=== PATIENT | male | born 1940 | race Caucasian/White ===

== ENCOUNTER 2019-05-04 17:28 | Observation (INO) | payer MEDICARE, OTHER ==
[2019-05-04 19:37] LABS: #Basophils 0.1 thou/uL (0.0-0.2); #Eosinphils 0.1 thou/uL (0.0-0.7); #Lymphocytes 3.1 thou/uL (1.20-3.40); #Monocytes 0.9 thou/uL (0.11-0.59); #Neutrophils 8.3 thou/uL (1.40-6.50); %Basophils 0.4 % (0.0-1.0); %Monocytes 7.5 % (0.0-10.0); Hemoglobin 11.4 g/dL (14.0-18.0); Mean Corpuscular HGB CONC 33.9 g/dL (32.0-36.0); Mean Corpuscular Hemoglobin 29.8 pg (27.0-31.0); Mean Corpuscular Volume 87.9 fL (78.0-98.0); Mean Platelet Volume 7.9 fL (7.4-10.4); Platelet Count 370 thou/uL (130-400); RBC Distribution Width 13.3 % (11.5-14.5); Red Blood Cell (RBC) Count 3.82 mill/uL (4.70-6.10); White Blood Cell (WBC) Count 12.5 thou/uL (4.8-10.8)
--- NOTE | 2019-05-04 19:51 | CT ---
EXAM: CT cervical spine PROVIDED CLINICAL HISTORY: Pain from level of the shoulders to mid back after a fall 7 hours ago. TECHNIQUE: Contiguous axial CT images are obtained through the cervical spine from the skull base to the T1 leve l. Sagittal and coronal reformatted images are provided. COMPARISON: 08/19/2006. FINDINGS: There is rotation of C1 on C2. However, the patient's head is tilted to the left and rotated. This is likely related to positioning and not thought to be related to rotary subluxation. Postsurgical changes related to anterior cervical fusion C6-T1 vertebral bodies with interbody fusion material is again seen. No hardware complication is seen. Multilevel degenerative changes are seen throughout the cervical spine with narrowing of the intervertebral disc spaces in the visualized cerv ical spine with multilevel facet hypertrophic changes. There is posterior osteophyte 1. No evidence for fracture traumatic subluxation. Formation with disc osteophyte complexes at multip le levels superior to the level of fusion. Moderate left-sided neural foraminal narrowing is seen at C2-3 level with severe bilateral neural foraminal narrowing at C3-4, and moderate to severe bilate ral neural foraminal narrowing at the C5-C6 level. Posterior osteophyte formation at the C6-7 level also results in moderate to severe bilateral neural foraminal narrowing due to bony encroachment. No prevertebral soft tissue swelling apparent. Incompletely imaged, the most superior aspect of each lung apex is clear. Subcentimeter too small to characterize hypodense nodule is seen in the left lobe of thyroid gland. Vascular calcifications are seen in the carotid arteries. IMPRESSION: 1. No evidence of a fracture or traumatic subluxation. 2. Postoperative and degenerative changes of the cervical spine as described above. 3. Subcentimeter too small to characterize hypodense nodule left lobe of the thyroid gland.
[2019-05-04 20:01] LABS: ALT (SGPT) 8 U/L (8-55); AST (SGOT) 13 U/L (5-34); Albumin 3.7 g/dL (3.4-4.8); Alkaline Phosphatase 123 U/L (40-150); Anion Gap 17 mmol/L (10-20); BUN (Urea Nitrogen) 38 mg/dL (8.4-25.7); Bilirubin, Total 0.2 mg/dL (0.2-1.2); Calc. Creatinine Clearance 0 mL/min (70-130); Calcium 9.1 mg/dL (7.8-10.44); Carbon Dioxide 23 mmol/L (23-31); Chloride 103 mmol/L (98-107); Estimated GFR-MDRD 28; Globulin 3.4 g/dL (2.4-3.5); Glucose 118 mg/dL (83-110); Potassium 4.2 mmol/L (3.5-5.1); Protein, Total 7.1 g/dL (5.8-8.1); Sodium 139 mmol/L (136-145)
--- NOTE | 2019-05-04 20:04 | CT ---
EXAM: CT Thoracic Spine WO Con PROVIDED CLINICAL HISTORY: Back pain from the level of the shoulders to the mid back after a fall 7 hours ago. COMPARISON: 08/19/2006. FINDINGS: Multilevel degenerative changes are seen throughout the thoracic spine with multiple bridging osteoph ytes. Postsurgical changes lower cervical spine are visualized and described on CT cervical spine also obtained on this date. The vertebral body heights do appear to be within normal limits, and no f racture or subluxation is appreciated. There is no significant bony encroachment on the central spinal canal with scattered mild degrees of neural foraminal narrowing present. The paravertebral soft tissues have a normal appearance. There is an area of sclerosis seen within the T12 vertebral body which is a stable finding compared t o CT examination in 2017 and probably related to mild endplate degenerative changes. There is vacuum phenomenon seen in the T12-L1 intervertebral disc space. Vascular calcifications are seen in the thoracic aorta. A noncalcified 6 mm pulmonary nodule is seen in the right lower lobe with volume loss seen at each whitney ng base. There are calcified vessels seen posterior pleural fat just to the lower thoracic spine. IMPRESSION: 1. Noncalcified 6 pulmonary nodule right lower lobe. Follow-up CT thorax in 6 months is recommended. 2. Degenerative changes involving the thoracic spine, but no fracture or subluxation is seen.
[2019-05-04] MEDS ORDERED: Fentanyl 100 MCG/2 ML VIAL ONE (20:07)
[2019-05-04] MEDS ORDERED: Ondansetron PF 4 MG/2 ML Vial ONE (20:07)
--- NOTE | 2019-05-04 20:19 | CT ---
CT LUMBAR SPINE WITHOUT CONTRAST: HISTORY: Fall 7 hours ago. Pain. COMPARISON: 05/21/2017 FINDINGS: There are five lumbar type vertebrae. Lumbar spine vertebral body height is maintained. No fracture . There is vacuum disk phenomenon at T12-L1, L2-L3, L3-L4, L4-L5, and L5-S1. There is 3.2 mm of retrolisthesis of L3 upon L4 and 6.2 mm of anterolisthesis of L4 upon L5. There a re decompressive laminectomy defects at L3-L4 and L4-L5. There is nonspecific sclerosis along the right aspect of T12, which is presumed to be due to a chroni c process. The degree of sclerosis appears to have progressed when compared to the previous examinat ion and may be due to type III modic change. No paraspinal mass, lymphadenopathy, or hematoma. A nonaneurysmal atherosclerotic aorta is noted. Nonspecific calcification in the right renal pelvis. Limited evaluation of the contents of the central spinal canal and neural foramina due to technique. T11-T12: No significant central canal stenosis. The foramina are patent. T12-L1: Vacuum disk phenomenon. Moderate central canal stenosis secondary to broad-based disk bulge . Moderate bilateral foraminal narrowing. L1-L2: Broad-based disk bulge, ligamentum flavum thickening, and facet hypertrophy result in moderat e to severe central canal stenosis. Moderate to severe bilateral foraminal narrowing. L2-L3: Broad-based disk bulge, ligamentum flavum thickening, and facet hypertrophy result in moderat e central canal stenosis. Moderate right and left foraminal narrowing. L3-L4: Posterior laminectomy defect. Broad-based disk bulge with at least mild central canal stenos is. Moderate to severe bilateral foraminal narrowing. L4-L5: Posterior laminectomy defect. Broad-based disk bulge with at least mild to moderate central canal stenosis. Moderate right and left foraminal narrowing. L5-S1: Central disk protrusion abuts the thecal sac. Disk material encroaches upon the left and rig ht subarticular zone with presumed mass effect upon the bilateral traversing S1 nerve roots. IMPRESSION: 1. No fracture. 2. Extensive degenerative change of the lumbar spine, as detailed above. POS: PPP
[2019-05-04] MEDS ORDERED: HYDROcodone/Acetaminophen 7.5/325 mg Tablet ONE (20:43)
[2019-05-04] MEDS: Sodium Chloride 0.9% 1,000 ML IV SCH (22:46)
[2019-05-05] MEDS ORDERED: Acetaminophen 325 MG TAB PO PRN (01:54)
[2019-05-05] MEDS ORDERED: Acetaminophen 650 MG Suppository PR PRN (01:54)
[2019-05-05] MEDS ORDERED: Ondansetron PF 4 MG/2 ML Vial IVP PRN (01:54)
[2019-05-05] MEDS ORDERED: Ondansetron ODT 4 MG TAB PO PRN (01:54)
[2019-05-05] MEDS ORDERED: PROVENTIL INHALER 6.7 G (200 INHALATIONS) INH PRN (01:57)
[2019-05-05] MEDS ORDERED: HYDROcodone/Acetaminophen 7.5/325 mg Tablet PO SCH (03:00)
[2019-05-05] MEDS ORDERED: Dextrose 50% Abboject 50 ML SYRINGE SLOW IVP PRN (04:29)
[2019-05-05] MEDS ORDERED: HumaLOG 300 UNITS/3 ML VIAL SC PRN (04:29)
[2019-05-05] MEDS ORDERED: Dextrose 5% in Water 1,000 ML IV PRN (04:29)
[2019-05-05 05:29] LABS: #Basophils 0.1 thou/uL (0.0-0.2); #Eosinphils 0.3 thou/uL (0.0-0.7); #Monocytes 1.1 thou/uL (0.11-0.59); #Neutrophils 6.1 thou/uL (1.40-6.50); %Basophils 0.5 % (0.0-1.0); %Eosinophils 2.5 % (0.0-10.0); %Lymphocytes 34.9 % (21.0-51.0); %Monocytes 9.4 % (0.0-10.0); %Neutrophils 52.7 % (42.0-75.0); Hemoglobin 10.6 g/dL (14.0-18.0); Mean Corpuscular HGB CONC 32.1 g/dL (32.0-36.0); Mean Corpuscular Hemoglobin 29.2 pg (27.0-31.0); Mean Platelet Volume 7.9 fL (7.4-10.4); Platelet Count 359 thou/uL (130-400); RBC Distribution Width 13.3 % (11.5-14.5); Red Blood Cell (RBC) Count 3.64 mill/uL (4.70-6.10); White Blood Cell (WBC) Count 11.5 thou/uL (4.8-10.8)
[2019-05-05 05:46] LABS: Anion Gap 14 mmol/L (10-20); BUN (Urea Nitrogen) 31 mg/dL (8.4-25.7); Calc. Creatinine Clearance 54 mL/min (70-130); Calcium 8.6 mg/dL (7.8-10.44); Carbon Dioxide 20 mmol/L (23-31); Chloride 107 mmol/L (98-107); Estimated GFR-MDRD 35; Glucose 80 mg/dL (83-110); Potassium 4.2 mmol/L (3.5-5.1); Sodium 137 mmol/L (136-145)
[2019-05-05 07:29] LABS: Bacteria/HPF None Seen HPF (None Seen); Bilirubin Negative (Negative); Blood, Urine Negative (Negative); Clarity Clear (Clear); Glucose, Urine (Dipstick) Normal (Negative); Leukocyte Negative Leu/uL (Negative); Nitrite Negative (Negative); Protein, Urine (Dipstick) Negative (Neg-Trace); RBC/HPF 0-3 HPF (0-3); Squamous Epithelial 0-3 HPF (0-3); Urobilinogen Normal mg/dL (Less than 2); WBC/HPF 0-3 HPF (0-3)
[2019-05-05 07:31] LABS: Urine Culture Reflex No No
--- NOTE | 2019-05-05 08:16 | HP ---
PRIMARY CARE PHYSICIAN: Dr. Luis Duffy. CODE STATUS: Full code. TIME OF EVALUATION: 2:00 a.m. CHIEF COMPLAINT: Fall. HISTORY OF PRESENT ILLNESS: A 78-year-old male patient with past medical history of hypertension, diabetes, came to the hospital after having a fall 7 hours ago, who reported he lost his balance, unclear if he lost his consciousness or not. The symptoms started when he was in [employer] with no clear triggers, no alleviating factors. The symptoms were severe. REVIEW OF SYSTEMS: All systems were reviewed and negative except for the findings mentioned above. PAST MEDICAL HISTORY: Positive for hypertension and diabetes. SURGICAL HISTORY: Low back surgery, neck surgery, bilateral knee replacement, hemorrhoid surgery, sinus surgery, tonsillectomy. PSYCHIATRIC HISTORY: Anxiety and depression. SOCIAL HISTORY: No alcohol. No drugs. The patient is a former tobacco user. He smoked cigarettes. The patient quit smoking more than 10 years ago. KNOWN ALLERGIES: Ibuprofen and morphine. REPORTED MEDICATIONS: 1. Aspirin 81. 2. Diltiazem. 3. Lisinopril. 4. Sertraline. 5. Trazodone. 6. Cyproheptadine. 7. Atorvastatin. 8. Furosemide. 9. Gabapentin. 10. Bupropion. PHYSICAL EXAMINATION: VITAL SIGNS: On presentation; blood pressure 116/58 with heart rate 87, respiratory rate was 15, temperature 98.8, pain was 10/10, oxygen saturation was 96% on room air. GENERAL APPEARANCE: The patient is alert, oriented, no acute distress. HEENT: Eyes, normal conjunctivae. Moist oral mucosa. Anicteric. No JVD. RESPIRATORY: Bilateral air entry. No rales. No wheezing. Symmetric expansion. CARDIOVASCULAR: Normal rate. Regular rhythm. No murmurs. No gallop. No edema. ABDOMEN: Soft. Normal bowel sounds. MUSCULOSKELETAL: Baseline range of motion and strength. SKIN: Warm and intact. No pallor. No rash. No redness. Capillary refill seems to be intact. NEURO: No evidence of any new focal weakness. Cranial nerves seems to be intact. PSYCH: The patient is in good mood. No anxiety. Optimal judgment. DIAGNOSTIC DATA: The EKG was reviewed. The patient has normal sinus rhythm with a rate of 81, low-voltage QRS. No ST-elevation SC. RADIOLOGY: Thoracic spine CT negative, noncalcified 6 pulmonary nodules in the right lower lobe. Follow up in 6 months is recommended. The patient had degenerative changes involving the thoracic spine, but no fractures or subluxation are seen. Lumbar spine CT negative. No fractures, no subluxation changes. LABORATORY DATA: Labs were reviewed. White count 12.5, hemoglobin 11.4, MCV 87.9, platelet count 370. Sodium 139, potassium 4.2, chloride 103, carbon dioxide 23, anion gap 17, BUN 28, creatinine 2.28. On previous admission, the creatinine was 1.65. GFR 28, glucose 118, calcium 9.1, total bilirubin 0.2. LFTs were negative. Troponin was negative. ASSESSMENT AND PLAN: The patient will be placed in the hospital with following medical problems; 1. Status post fall. The patient will need lens assistant for discharge. Unclear if this was an episode of near-syncope or hypotension since the patient has a worsened creatinine, might be in the dry side. We will give IV fluids. We will monitor and treat accordingly. 2. Acute kidney injury on chronic kidney disease. The patient has an increase in creatinine . We will hydrate. Monitor kidney function and treat accordingly. 3. Leukocytosis, unclear etiology. No evidence of infection. We will monitor. We will do UA. Antibiotics will need to be started if any evidence of infection is found. 4. Uncontrolled diabetes, blood sugar 118. We will place the patient on sliding scale. Reconcile home medications. 5. Near syncope. We will monitor on telemetry, follow echo and carotid Doppler. 6. Deep venous thrombosis prophylaxis. Job ID: [id number]
--- NOTE | 2019-05-05 08:26 | ULT ---
BILATERAL CAROTID DUPLEX ULTRASOUND: HISTORY: Syncope TECHNIQUE: Grayscale, color-flow and spectral Doppler ultrasound imaging of the extracranial carotid artery syst ems was performed bilaterally. FINDINGS: Mild plaque formation. The peak systolic velocity in the right ICA measures 72 cm/s. The peak systolic velocity in the left ICA measures 56 cm/s. Vertebral flow: antegrade, bilaterally. IMPRESSION: No hemodynamically significant stenosis of Both ICAs.
[2019-05-05] MEDS ORDERED: Non-Formulary Item 1 EACH (Fexofenadine Hcl [Allegra Allergy] 180 MG) PO SCH (09:00)
[2019-05-05] MEDS ORDERED: Bupropion 150 MG SR TAB PO SCH (09:00)
[2019-05-05] MEDS ORDERED: Lisinopril 20 MG TAB PO SCH (09:00)
[2019-05-05] MEDS ORDERED: Gabapentin 300 MG CAP PO SCH (09:00)
[2019-05-05] MEDS ORDERED: Cyanocobalamin (Vitamin B-12) 1,000 MCG TAB PO SCH (09:00)
[2019-05-05] MEDS ORDERED: Loratadine 10 MG TAB PO SCH (09:00)
[2019-05-05] MEDS ORDERED: Furosemide 40 MG TAB PO SCH (09:00)
[2019-05-05] MEDS ORDERED: Multivitamin W/ Minerals 1 TAB PO SCH (09:00)
[2019-05-05] MEDS ORDERED: Enoxaparin Sodium 40 MG/0.4 ML SYRINGE SC SCH (09:00)
[2019-05-05] MEDS: Sodium Chloride 0.9% 1,000 ML IV SCH (09:03)
[2019-05-05 12:03] VITALS: TEMP 98.5
[2019-05-05 16:44] VITALS: BP 129/69
[2019-05-05] MEDS ORDERED: traZODone HCl 50 MG TAB PO SCH (21:00)
[2019-05-05] MEDS ORDERED: Cyclobenzaprine 10 MG TAB PO SCH (21:00)
[2019-05-05] MEDS ORDERED: Aspirin Chewable 81 MG TAB PO SCH (21:00)
[2019-05-05] MEDS ORDERED: Atorvastatin Calcium 10 MG TAB PO SCH (21:00)
[2019-05-05] MEDS ORDERED: Cyproheptadine 4 MG TAB PO SCH (21:00)
--- NOTE | 2019-05-06 10:57 | DIS ---
DATE OF ADMISSION: 05/04/2019 DATE OF DISCHARGE: 05/05/2019 DISCHARGE DIAGNOSES: 1. Fall. 2. Dehydration. 3. Acute kidney injury. 4. Leukocytosis. 5. Diabetes mellitus. 6. Near syncope. 7. Chronic back pain. 8. Thyroid nodule and lung nodule, 6 mm. HISTORY OF PRESENT ILLNESS: This patient is a 78-year-old obese male with a history of chronic back pain on chronic medication to manage that pain. The patient was [place] [employer], when he had an episode of nearly falling. The details were difficult to elicit. It is unclear if the patient actually had a near syncopal episode or if he simply got weak to stand, lost his balance. The patient favored the latter explanation over the former was a little sketchy on the details. The patient does report that his auger press operator was able to grab him and lower him to the ground and then he did not actually have any major impact. In the Emergency Department, the patient had labs, which was notable for white count of 12.5, BUN of 28, creatinine of 2.28 with a GFR of 28. The patient's only prior lab reading on record at our facility was on July 27 with a GFR of 41, consistent with likely chronic kidney disease stage 3, although those are the only two data points available. The patient was on Lasix, and it was felt that the patient was likely suffering from some dehydration and acute kidney injury that likely led to his fall, possibly related to some orthostasis, although that was not confirmed either. HOSPITAL COURSE: The patient was placed on observation. He had no specific signs of infection in light of the mild leukocytosis, and it was felt that the simple demargination from the stress of the fall other than an infectious etiology. The patient did have a CT scan of the cervical spine revealing postoperative and degenerative changes with a nodule of the left thyroid gland, which was too small for further characterization. He had a CT scan of the thoracic spine, which revealed a non-calcified 6 mm nodule at the right lower lobe with recommendations for a followup CT scan in 6 months and degenerative changes involving the thoracic spine but no fracture or subluxation. A CT scan of the lumbar spine revealed extensive degenerative change of the lumbar spine but no acute findings or fractures. The patient was given IV fluids, and his diuretics were discontinued. His subsequent labs revealed his GFR had improved to 35. His white count had decreased to 11.5 and hemoglobin dropped from 11.4 to 10.6. The patient's vital signs were generally stable, and he was able to get up and ambulate well with physical therapy without much difficulty. He is eager to discharge, and he is felt to be stable to do so. The patient also had an echocardiogram performed which revealed an ejection fraction of 55% to 60% and suggestion of a diastolic dysfunction but otherwise structurally and functionally normal heart. DISCHARGE PHYSICAL EXAMINATION: VITAL SIGNS: On the day of discharge, temperature was 98.5, pulse 86, respirations 16, O2 sats 92% to 93% on room air, pulse was 71, and BP was 129/69. GENERAL APPEARANCE: Obese male, in no distress. Awake, alert, oriented, pleasant, and cooperative. HEENT: FRENCH. No OP lesions. HEART: Regular without murmurs. LUNGS: Clear bilaterally. ABDOMEN: Benign. EXTREMITIES: Had no edema. DISPOSITION: The patient is discharged to home. He will remain on his usual home medications. Please see the discharge medication list for further details. However, he is instructed to take his Lasix every other day until he follows up with Dr. Duffy. ACTIVITY: As tolerated. He has no new restrictions on his diet. FOLLOWUP: He is to follow up with Dr. Duffy in 7 days, and he can return to the hospital should he have any problems prior to that time. The patient was educated about the findings of the thyroid nodule and the very small lung nodule with the recommendations to have followup imaging in six months. His family was present, and they were made aware of these as well. Job ID: [id number]
== END 2019-05-05 17:35 | disposition home or self-care (01) ==
LOC: ERS 17:28 → 2SW 22:13
PROVIDERS: ADMIT Hospitalist; ATTEND Hospitalist
DX: R55 Syncope and collapse (principal); F41.9 Anxiety disorder, unspecified; F32.9 Major depressive disorder, single episode, unspecified; I12.9 Hypertensive chronic kidney disease with stage 1 through stage 4 chronic kidney disease, or unspecified chronic kidney disease; E11.22 Type 2 diabetes mellitus with diabetic chronic kidney disease; N18.9 Chronic kidney disease, unspecified; N17.9 Acute kidney failure, unspecified; D72.829 Elevated white blood cell count, unspecified; M51.27 Other intervertebral disc displacement, lumbosacral region; M96.1 Postlaminectomy syndrome, not elsewhere classified; M48.04 Spinal stenosis, thoracic region; R91.1 Solitary pulmonary nodule; M48.02 Spinal stenosis, cervical region; Z79.899 Other long term (current) drug therapy; Z79.82 Long term (current) use of aspirin; Z88.5 Allergy status to narcotic agent; Z88.8 Allergy status to other drugs, medicaments and biological substances; Z98.1 Arthrodesis status; W19.XXXA Unspecified fall, initial encounter
CPT/HCPCS: 36415; 36416; 72125; 72128; 72131; 80048; 80053; 81001; 84484; 85025; 93005; 93306; 93880; 96361; 96372; 96374; 96375; G0378; J1650; J2405; J3010

== ENCOUNTER 2020-11-23 21:48 | Emergency (ER) | payer OTHER ==
[2020-11-23] MEDS ORDERED: Boostrix 0.5 ML (Tdap) VIAL ONE (23:01)
== END 2020-11-24 01:22 | disposition home or self-care (01) ==
LOC: ERS 21:48
DX: S01.81XA Laceration without foreign body of other part of head, initial encounter (principal); S61.216A Laceration without foreign body of right little finger without damage to nail, initial encounter; S61.012A Laceration without foreign body of left thumb without damage to nail, initial encounter; I10 Essential (primary) hypertension; E11.9 Type 2 diabetes mellitus without complications; Z87.891 Personal history of nicotine dependence; Z23 Encounter for immunization; W01.198A Fall on same level from slipping, tripping and stumbling with subsequent striking against other object, initial encounter
CPT/HCPCS: 12001; 12011; 70450; 72125; 90471; 90715

== ENCOUNTER 2021-06-04 10:42 | Inpatient (IN) | payer BC, MEDICARE, OTHER ==
[2021-06-04 11:55] LABS: #Basophils 0.1 thou/uL (0.0-0.2); #Eosinphils 0.2 thou/uL (0.0-0.7); #Lymphocytes 3.3 thou/uL (1.20-3.40); #Monocytes 1.3 thou/uL (0.11-0.59); #Neutrophils 13.5 thou/uL (1.40-6.50); %Basophils 0.5 % (0.0-1.0); %Lymphocytes 17.7 % (21.0-51.0); %Monocytes 7.2 % (0.0-10.0); %Neutrophils 73.6 % (42.0-75.0); Hemoglobin 14.3 g/dL (14.0-18.0); Mean Corpuscular HGB CONC 32.1 g/dL (32.0-36.0); Mean Corpuscular Hemoglobin 29.6 pg (27.0-31.0); Mean Corpuscular Volume 92.1 fL (78.0-98.0); Mean Platelet Volume 9.2 fL (7.4-10.4); Platelet Count 316 thou/uL (130-400); Red Blood Cell (RBC) Count 4.82 mill/uL (4.70-6.10); White Blood Cell (WBC) Count 18.4 thou/uL (4.8-10.8)
[2021-06-04 12:29] LABS: Bacteria/HPF None Seen HPF (None Seen); Bilirubin Negative (Negative); Blood, Urine Negative (Negative); Clarity Clear (Clear); Glucose, Urine (Dipstick) Normal (Negative); Ketone, Urine Negative (Negative); Leukocyte Negative Leu/uL (Negative); Nitrite Negative (Negative); Protein, Urine (Dipstick) 30 mg/dL (Neg-Trace); RBC/HPF 0-3 HPF (0-3); Specific Gravity, Urine 1.022 (1.002-1.036); Squamous Epithelial 0-3 HPF (0-3); Urobilinogen Normal mg/dL (Less than 2); WBC/HPF 0-3 HPF (0-3)
[2021-06-04 12:33] LABS: ALT (SGPT) 17 U/L (8-55); AST (SGOT) 35 U/L (5-34); Albumin 3.7 g/dL (3.4-4.8); Alkaline Phosphatase 95 U/L (40-110); Anion Gap 18 mmol/L (10-20); BUN (Urea Nitrogen) 30 mg/dL (8.4-25.7); Bilirubin, Total 0.6 mg/dL (0.2-1.2); Calc. Creatinine Clearance 0 mL/min (70-130); Calcium 9.1 mg/dL (7.8-10.44); Carbon Dioxide 22 mmol/L (23-31); Chloride 102 mmol/L (98-107); Globulin 3.7 g/dL (2.4-3.5); Glucose 118 mg/dL (83-110); Potassium 4.3 mmol/L (3.5-5.1); Protein, Total 7.4 g/dL (5.8-8.1); Sodium 138 mmol/L (136-145)
[2021-06-04 13:09] LABS: CKMB 2.5 ng/mL (0-6.6)
[2021-06-04] MEDS ORDERED: Iopamidol-370 76% 500 ML 1 ML ONE (13:50)
[2021-06-04 15:30] LABS: Troponin I 0.036 ng/mL (< 0.028)
[2021-06-04] MEDS ORDERED: Ondansetron ODT 4 MG TAB SL PRN (15:30)
[2021-06-04] MEDS ORDERED: Ondansetron PF 4 MG/2 ML Vial IVP PRN (15:30)
[2021-06-04] MEDS ORDERED: Acetaminophen 650 MG Suppository PR PRN (15:41)
[2021-06-04 16:08] VITALS: BMI 34.5
[2021-06-04 16:24] LABS: Lactic Acid 1.3 mmol/L (0.5-2.2)
[2021-06-04 16:38] LABS: Troponin I 0.033 ng/mL (< 0.028)
[2021-06-04] MEDS ORDERED: Dextrose 50% Abboject 50 ML SYRINGE SLOW IVP PRN (17:11)
[2021-06-04] MEDS ORDERED: Insulin Regular 300 UNITS/3 ML VIAL SC PRN ×2 (17:11)
[2021-06-04] MEDS ORDERED: Dextrose 5% in Water 1,000 ML IV PRN (17:11)
[2021-06-04] MEDS: Sodium Chloride 0.9% 1,000 ML IV SCH (17:20)
[2021-06-04] MEDS: Ampicillin/Sulbactam 3 GM in Sodium Chloride 0.9% 100 ML IVPB SCH ×2 (18:05→21:04)
[2021-06-04] MEDS: Acetaminophen 325 MG TAB PO PRN (18:05)
[2021-06-04] MEDS: Gabapentin 300 MG CAP PO SCH (21:04)
[2021-06-04] MEDS: traZODone HCl 50 MG TAB PO SCH (21:05)
[2021-06-04] MEDS: Heparin 5,000 UNITS/ML VIAL SC SCH (21:05)
[2021-06-04] MEDS: Melatonin 3 MG TAB PO SCH (21:05)
[2021-06-04 22:27] LABS: Bilirubin Negative (Negative); Blood, Urine Negative (Negative); Clarity Clear (Clear); Glucose, Urine (Dipstick) Normal (Negative); Ketone, Urine Negative (Negative); Leukocyte Negative Leu/uL (Negative); Nitrite Negative (Negative); Protein, Urine (Dipstick) 20 mg/dL (Neg-Trace); RBC/HPF 0-3 HPF (0-3); Specific Gravity, Urine 1.043 (1.002-1.036); Squamous Epithelial 0-3 HPF (0-3); Urobilinogen Normal mg/dL (Less than 2); WBC/HPF 0-3 HPF (0-3); pH, Urine 5.5 (5.0-9.0)
[2021-06-04 22:30] LABS: Bacteria/HPF Rare-Few HPF (None Seen)
[2021-06-05] MEDS: Ampicillin/Sulbactam 3 GM in Sodium Chloride 0.9% 100 ML IVPB SCH ×6 (01:45→21:19)
[2021-06-05 04:42] LABS: #Eosinphils 0.4 thou/uL (0.0-0.7); #Lymphocytes 4.6 thou/uL (1.20-3.40); #Monocytes 1.3 thou/uL (0.11-0.59); #Neutrophils 8.8 thou/uL (1.40-6.50); %Basophils 0.3 % (0.0-1.0); %Eosinophils 2.4 % (0.0-10.0); %Lymphocytes 30.6 % (21.0-51.0); %Monocytes 8.8 % (0.0-10.0); Hemoglobin 11.6 g/dL (14.0-18.0); Mean Corpuscular HGB CONC 30.7 g/dL (32.0-36.0); Mean Corpuscular Hemoglobin 28.3 pg (27.0-31.0); Mean Corpuscular Volume 92.3 fL (78.0-98.0); Mean Platelet Volume 8.7 fL (7.4-10.4); Platelet Count 316 thou/uL (130-400); RBC Distribution Width 12.9 % (11.5-14.5); Red Blood Cell (RBC) Count 4.11 mill/uL (4.70-6.10); White Blood Cell (WBC) Count 15.2 thou/uL (4.8-10.8)
[2021-06-05 05:19] LABS: Anion Gap 13 mmol/L (10-20); BUN (Urea Nitrogen) 27 mg/dL (8.4-25.7); Calc. Creatinine Clearance 56 mL/min (70-130); Calcium 8.4 mg/dL (7.8-10.44); Carbon Dioxide 24 mmol/L (23-31); Chloride 105 mmol/L (98-107); Glucose 101 mg/dL (83-110); Potassium 4.1 mmol/L (3.5-5.1); Sodium 138 mmol/L (136-145)
[2021-06-05] MEDS: Sodium Chloride 0.9% 1,000 ML IV SCH (06:03)
[2021-06-05] MEDS: Bupropion 150 MG SR TAB PO SCH (08:41)
[2021-06-05] MEDS: Aspirin 81 mg Enteric Coated Tablet PO SCH (08:41)
[2021-06-05] MEDS: Heparin 5,000 UNITS/ML VIAL SC SCH ×2 (08:42→21:20)
[2021-06-05] MEDS: Gabapentin 300 MG CAP PO SCH ×2 (08:42→21:19)
[2021-06-05 18:36] LABS: SARS-CoV-2 PCR by NAA Not Detected (NotDetected)
[2021-06-05] MEDS: Metoprolol Tartrate 25 MG TAB PO SCH (21:20)
[2021-06-05] MEDS: Acetaminophen 325 MG TAB PO PRN (21:20)
[2021-06-05] MEDS: Melatonin 3 MG TAB PO SCH (21:20)
[2021-06-05] MEDS: traZODone HCl 50 MG TAB PO SCH (21:20)
[2021-06-06] MEDS: Acetaminophen 325 MG TAB PO PRN (01:12)
[2021-06-06] MEDS: Ampicillin/Sulbactam 3 GM in Sodium Chloride 0.9% 100 ML IVPB SCH ×6 (01:12→20:04)
[2021-06-06] MEDS: Cyclobenzaprine 10 MG TAB PO PRN (01:12)
[2021-06-06] MEDS: Sodium Chloride 0.9% 1,000 ML IV SCH ×2 (01:43→04:46)
[2021-06-06 04:52] LABS: #Eosinphils 0.1 thou/uL (0.0-0.7); #Monocytes 1.5 thou/uL (0.11-0.59); #Neutrophils 6.6 thou/uL (1.40-6.50); %Basophils 0.2 % (0.0-1.0); %Eosinophils 1.1 % (0.0-10.0); %Lymphocytes 32.7 % (21.0-51.0); %Monocytes 12.3 % (0.0-10.0); %Neutrophils 53.7 % (42.0-75.0); Hemoglobin 10.3 g/dL (14.0-18.0); Mean Corpuscular HGB CONC 32.6 g/dL (32.0-36.0); Mean Corpuscular Hemoglobin 30.2 pg (27.0-31.0); Mean Corpuscular Volume 92.7 fL (78.0-98.0); Mean Platelet Volume 8.5 fL (7.4-10.4); Platelet Count 298 thou/uL (130-400); RBC Distribution Width 12.6 % (11.5-14.5); Red Blood Cell (RBC) Count 3.42 mill/uL (4.70-6.10); White Blood Cell (WBC) Count 12.4 thou/uL (4.8-10.8)
[2021-06-06 05:13] LABS: Anion Gap 12 mmol/L (10-20); BUN (Urea Nitrogen) 22 mg/dL (8.4-25.7); Calc. Creatinine Clearance 58 mL/min (70-130); Calcium 7.9 mg/dL (7.8-10.44); Carbon Dioxide 24 mmol/L (23-31); Chloride 107 mmol/L (98-107); Glucose 92 mg/dL (83-110); Sodium 139 mmol/L (136-145)
[2021-06-06] MEDS: Bupropion 150 MG SR TAB PO SCH (08:27)
[2021-06-06] MEDS: Aspirin 81 mg Enteric Coated Tablet PO SCH (08:28)
[2021-06-06] MEDS: Gabapentin 300 MG CAP PO SCH ×2 (08:28→20:04)
[2021-06-06] MEDS: Metoprolol Tartrate 25 MG TAB PO SCH ×2 (08:29→20:05)
[2021-06-06] MEDS: Heparin 5,000 UNITS/ML VIAL SC SCH (08:29)
[2021-06-06] MEDS: Saccharomyces boulardii 250 MG CAP PO SCH (09:58)
[2021-06-06] MEDS: Artificial Tear Sol 15 ML BOT L EYE SCH ×3 (14:00→20:04)
[2021-06-06] MEDS: Melatonin 3 MG TAB PO SCH (20:03)
[2021-06-06] MEDS: traZODone HCl 50 MG TAB PO SCH (20:05)
[2021-06-06] MEDS: Enoxaparin Sodium 40 MG/0.4 ML SYRINGE SC SCH (20:06)
[2021-06-07] MEDS: Ampicillin/Sulbactam 3 GM in Sodium Chloride 0.9% 100 ML IVPB SCH ×5 (00:04→23:43)
[2021-06-07 06:55] LABS: #Eosinphils 0.1 thou/uL (0.0-0.7); #Lymphocytes 3.1 thou/uL (1.20-3.40); #Monocytes 1.7 thou/uL (0.11-0.59); #Neutrophils 8.8 thou/uL (1.40-6.50); %Basophils 0.3 % (0.0-1.0); %Eosinophils 0.7 % (0.0-10.0); %Lymphocytes 22.6 % (21.0-51.0); %Monocytes 12.1 % (0.0-10.0); %Neutrophils 64.3 % (42.0-75.0); Hemoglobin 10.4 g/dL (14.0-18.0); Mean Corpuscular Hemoglobin 29.5 pg (27.0-31.0); Mean Corpuscular Volume 92.5 fL (78.0-98.0); Mean Platelet Volume 8.9 fL (7.4-10.4); Platelet Count 315 thou/uL (130-400); RBC Distribution Width 12.5 % (11.5-14.5); Red Blood Cell (RBC) Count 3.52 mill/uL (4.70-6.10); White Blood Cell (WBC) Count 13.7 thou/uL (4.8-10.8)
[2021-06-07 07:13] LABS: Anion Gap 11 mmol/L (10-20); BUN (Urea Nitrogen) 19 mg/dL (8.4-25.7); Calc. Creatinine Clearance 55 mL/min (70-130); Carbon Dioxide 24 mmol/L (23-31); Chloride 105 mmol/L (98-107); Glucose 111 mg/dL (83-110); Potassium 4.1 mmol/L (3.5-5.1); Sodium 136 mmol/L (136-145)
[2021-06-07] MEDS: Aspirin 81 mg Enteric Coated Tablet PO SCH (10:33)
[2021-06-07] MEDS: Bupropion 150 MG SR TAB PO SCH (10:33)
[2021-06-07] MEDS: Gabapentin 300 MG CAP PO SCH ×2 (10:34→21:19)
[2021-06-07] MEDS: Saccharomyces boulardii 250 MG CAP PO SCH (10:34)
[2021-06-07] MEDS: Metoprolol Tartrate 25 MG TAB PO SCH ×2 (10:48→21:19)
[2021-06-07] MEDS: Artificial Tear Sol 15 ML BOT L EYE SCH ×4 (11:35→21:20)
[2021-06-07] MEDS: traZODone HCl 50 MG TAB PO SCH (21:19)
[2021-06-07] MEDS: Chlorhexidine Gluconate 15 ML UDCUP SSP SCH (21:19)
[2021-06-07] MEDS: Melatonin 3 MG TAB PO SCH (21:19)
[2021-06-07] MEDS: Enoxaparin Sodium 40 MG/0.4 ML SYRINGE SC SCH (21:20)
[2021-06-08] MEDS: Acetaminophen 325 MG TAB PO PRN (05:36)
[2021-06-08] MEDS: Ampicillin/Sulbactam 3 GM in Sodium Chloride 0.9% 100 ML IVPB SCH ×4 (05:36→23:14)
[2021-06-08 07:01] LABS: #Eosinphils 0.2 thou/uL (0.0-0.7); #Lymphocytes 2.9 thou/uL (1.20-3.40); #Monocytes 1.5 thou/uL (0.11-0.59); #Neutrophils 9.9 thou/uL (1.40-6.50); %Basophils 0.2 % (0.0-1.0); %Eosinophils 1.1 % (0.0-10.0); %Lymphocytes 19.9 % (21.0-51.0); %Monocytes 10.3 % (0.0-10.0); %Neutrophils 68.5 % (42.0-75.0); Hemoglobin 9.9 g/dL (14.0-18.0); Mean Corpuscular HGB CONC 32.7 g/dL (32.0-36.0); Mean Corpuscular Hemoglobin 29.6 pg (27.0-31.0); Mean Corpuscular Volume 90.8 fL (78.0-98.0); Mean Platelet Volume 9.1 fL (7.4-10.4); Platelet Count 314 thou/uL (130-400); RBC Distribution Width 12.5 % (11.5-14.5); Red Blood Cell (RBC) Count 3.35 mill/uL (4.70-6.10); White Blood Cell (WBC) Count 14.4 thou/uL (4.8-10.8)
[2021-06-08 07:12] LABS: Anion Gap 13 mmol/L (10-20); BUN (Urea Nitrogen) 18 mg/dL (8.4-25.7); Calc. Creatinine Clearance 59 mL/min (70-130); Calcium 8.1 mg/dL (7.8-10.44); Carbon Dioxide 22 mmol/L (23-31); Chloride 106 mmol/L (98-107); Glucose 111 mg/dL (83-110); Sodium 137 mmol/L (136-145)
[2021-06-08 08:02] LABS: Thyroid Stimulating Hormone 0.9813 uIU/mL (0.35-4.94)
[2021-06-08] MEDS ORDERED: Cyanocobalamin 1000 MCG/ML VIAL IM SCH (08:15)
[2021-06-08] MEDS: Saccharomyces boulardii 250 MG CAP PO SCH (10:55)
[2021-06-08] MEDS: Metoprolol Tartrate 25 MG TAB PO SCH ×2 (10:56→20:18)
[2021-06-08] MEDS: Chlorhexidine Gluconate 15 ML UDCUP SSP SCH ×2 (10:59→20:17)
[2021-06-08] MEDS: Aspirin 81 mg Enteric Coated Tablet PO SCH (10:59)
[2021-06-08] MEDS: Gabapentin 300 MG CAP PO SCH ×2 (10:59→20:18)
[2021-06-08] MEDS: Multivit, Therapeutic 1 TAB PO SCH (11:03)
[2021-06-08] MEDS: Bupropion 150 MG SR TAB PO SCH (12:43)
[2021-06-08] MEDS: Artificial Tear Sol 15 ML BOT L EYE SCH ×4 (12:43→20:17)
[2021-06-08] MEDS: Cyanocobalamin (Vitamin B-12) 1,000 MCG TAB PO SCH (20:17)
[2021-06-08] MEDS: Melatonin 3 MG TAB PO SCH (20:17)
[2021-06-08] MEDS: traZODone HCl 50 MG TAB PO SCH (20:18)
[2021-06-08] MEDS: Cyclobenzaprine 10 MG TAB PO PRN (23:14)
[2021-06-09] MEDS: Ampicillin/Sulbactam 3 GM in Sodium Chloride 0.9% 100 ML IVPB SCH ×3 (05:01→18:24)
[2021-06-09 06:53] LABS: Hemoglobin 10.4 g/dL (14.0-18.0); Mean Corpuscular HGB CONC 32.1 g/dL (32.0-36.0); Mean Corpuscular Hemoglobin 29.6 pg (27.0-31.0); Mean Corpuscular Volume 92.2 fL (78.0-98.0); Mean Platelet Volume 8.1 fL (7.4-10.4); Platelet Count 308 thou/uL (130-400); RBC Distribution Width 12.5 % (11.5-14.5); Red Blood Cell (RBC) Count 3.53 mill/uL (4.70-6.10); White Blood Cell (WBC) Count 15.3 thou/uL (4.8-10.8)
[2021-06-09 07:16] LABS: Anion Gap 14 mmol/L (10-20); BUN (Urea Nitrogen) 18 mg/dL (8.4-25.7); Calc. Creatinine Clearance 59 mL/min (70-130); Calcium 8.2 mg/dL (7.8-10.44); Carbon Dioxide 22 mmol/L (23-31); Chloride 106 mmol/L (98-107); Glucose 105 mg/dL (83-110); Potassium 4.4 mmol/L (3.5-5.1); Sodium 138 mmol/L (136-145)
[2021-06-09 07:58] LABS: #Eosinphils 0.2 thou/uL (0.0-0.7); #Lymphocytes 3.4 thou/uL (1.20-3.40); #Monocytes 1.5 thou/uL (0.11-0.59); #Neutrophils 10.3 thou/uL (1.40-6.50); %Basophils 0.2 % (0.0-1.0); %Lymphocytes 22.1 % (21.0-51.0); %Monocytes 9.8 % (0.0-10.0); %Neutrophils 66.9 % (42.0-75.0); Band 1 % (5-11); Eosinophils 3 % (0-10); Lymphocytes 20 % (21-51); MDiff Complete? YES; Monocytes 8 % (0-10); Neutrophil 68 % (42-75); Platelet Morphology Comment Appears Adequate; Polychromasia SLIGHT = 2-3 cells (100X) (0-2/hpf)
[2021-06-09] MEDS: Chlorhexidine Gluconate 15 ML UDCUP SSP SCH ×2 (09:41→20:13)
[2021-06-09] MEDS: Aspirin 81 mg Enteric Coated Tablet PO SCH (09:41)
[2021-06-09] MEDS: Artificial Tear Sol 15 ML BOT L EYE SCH ×4 (09:41→20:12)
[2021-06-09] MEDS: Bupropion 150 MG SR TAB PO SCH (09:41)
[2021-06-09] MEDS: Gabapentin 300 MG CAP PO SCH ×2 (09:41→20:11)
[2021-06-09] MEDS: Multivit, Therapeutic 1 TAB PO SCH (09:41)
[2021-06-09] MEDS: Metoprolol Tartrate 25 MG TAB PO SCH ×2 (09:42→20:12)
[2021-06-09] MEDS: Saccharomyces boulardii 250 MG CAP PO SCH (09:42)
[2021-06-09 11:13] LABS: Troponin I 0.046 ng/mL (< 0.028)
[2021-06-09 13:41] LABS: Troponin I 0.039 ng/mL (< 0.028)
[2021-06-09 17:22] LABS: Troponin I 0.045 ng/mL (< 0.028)
[2021-06-09] MEDS: Melatonin 3 MG TAB PO SCH (20:11)
[2021-06-09] MEDS: Cyanocobalamin (Vitamin B-12) 1,000 MCG TAB PO SCH (20:11)
[2021-06-09] MEDS: Cyclobenzaprine 10 MG TAB PO PRN (20:11)
[2021-06-09] MEDS: traZODone HCl 50 MG TAB PO SCH (20:12)
[2021-06-09 20:26] LABS: Troponin I 0.038 ng/mL (< 0.028)
[2021-06-10] MEDS: Ampicillin/Sulbactam 3 GM in Sodium Chloride 0.9% 100 ML IVPB SCH ×3 (00:22→12:33)
[2021-06-10] MEDS: Acetaminophen 325 MG TAB PO PRN ×2 (00:22→12:46)
[2021-06-10] MEDS ORDERED: Budesonide 0.5 MG/2 ML NEB ONE (05:37)
[2021-06-10] MEDS: Cyclobenzaprine 10 MG TAB PO PRN (05:45)
[2021-06-10] MEDS: Bupropion 150 MG SR TAB PO SCH (08:47)
[2021-06-10] MEDS: Aspirin 81 mg Enteric Coated Tablet PO SCH (08:47)
[2021-06-10] MEDS: Chlorhexidine Gluconate 15 ML UDCUP SSP SCH (08:47)
[2021-06-10] MEDS: Metoprolol Tartrate 25 MG TAB PO SCH (08:48)
[2021-06-10] MEDS: Saccharomyces boulardii 250 MG CAP PO SCH (08:49)
[2021-06-10] MEDS: Multivit, Therapeutic 1 TAB PO SCH (08:49)
[2021-06-10] MEDS: Gabapentin 300 MG CAP PO SCH (08:50)
[2021-06-10] MEDS: Artificial Tear Sol 15 ML BOT L EYE SCH ×2 (09:00→12:34)
[2021-06-10 15:52] VITALS: BP 153/89; TEMP 99.7
== END 2021-06-10 16:33 | DRG 872 ==
LOC: ERS 10:42 → 2NO 13:54 → OBSVTOIN 06-05 07:42 → SURG A 06-06 14:02
PROVIDERS: ADMIT Internal Medicine; ATTEND Internal Medicine
DX: A41.9 Sepsis, unspecified organism (principal); L03.211 Cellulitis of face; N17.9 Acute kidney failure, unspecified; I47.1 Supraventricular tachycardia; I13.0 Hypertensive heart and chronic kidney disease with heart failure and stage 1 through stage 4 chronic kidney disease, or unspecified chronic kidney disease; E78.5 Hyperlipidemia, unspecified; I25.10 Atherosclerotic heart disease of native coronary artery without angina pectoris; M19.90 Unspecified osteoarthritis, unspecified site; F41.9 Anxiety disorder, unspecified; F32.9 Major depressive disorder, single episode, unspecified; Z96.653 Presence of artificial knee joint, bilateral; I50.9 Heart failure, unspecified; K04.7 Periapical abscess without sinus; I48.91 Unspecified atrial fibrillation; E11.22 Type 2 diabetes mellitus with diabetic chronic kidney disease; S70.00XA Contusion of unspecified hip, initial encounter; W19.XXXA Unspecified fall, initial encounter; E86.0 Dehydration; E53.8 Deficiency of other specified B group vitamins; E66.9 Obesity, unspecified; E11.69 Type 2 diabetes mellitus with other specified complication; N18.30 Chronic kidney disease, stage 3 unspecified; D64.9 Anemia, unspecified; M25.579 Pain in unspecified ankle and joints of unspecified foot; Z88.8 Allergy status to other drugs, medicaments and biological substances; Z79.899 Other long term (current) drug therapy; Z79.82 Long term (current) use of aspirin; Z90.49 Acquired absence of other specified parts of digestive tract; Z87.891 Personal history of nicotine dependence; Z91.81 History of falling; Y92.9 Unspecified place or not applicable; Z68.34 Body mass index [BMI] 34.0-34.9, adult
CPT/HCPCS: 36415; 36416; 70450; 70487; 71045; 72170; 80048; 80053; 81003; 81015; 82553; 82607; 82746; 83605; 83735; 84100; 84443; 84484; 85025; 93005; 93010; 94640; J0295; J1644; J1650; J3420; J3490; J7050; J7620; Q9967; U0003; U0005

== ENCOUNTER 2022-03-02 12:19 | Observation (INO) | payer MEDICARE, BC ==
[2022-03-02 15:30] LABS: #Eosinphils 0.1 thou/uL (0.0-0.7); #Lymphocytes 3.1 thou/uL (1.20-3.40); #Monocytes 1.2 thou/uL (0.11-0.59); #Neutrophils 8.1 thou/uL (1.40-6.50); %Basophils 0.2 % (0.0-1.0); %Eosinophils 0.9 % (0.0-10.0); %Lymphocytes 24.8 % (21.0-51.0); %Monocytes 9.7 % (0.0-10.0); %Neutrophils 64.5 % (42.0-75.0); Hemoglobin 12.3 g/dL (14.0-18.0); Mean Corpuscular HGB CONC 32.1 g/dL (32.0-36.0); Mean Corpuscular Hemoglobin 30.4 pg (27.0-31.0); Mean Corpuscular Volume 94.9 fL (78.0-98.0); Mean Platelet Volume 7.7 fL (7.4-10.4); Platelet Count 351 thou/uL (130-400); RBC Distribution Width 12.9 % (11.5-14.5); Red Blood Cell (RBC) Count 4.03 mill/uL (4.70-6.10); White Blood Cell (WBC) Count 12.5 thou/uL (4.8-10.8)
[2022-03-02 15:55] LABS: ALT (SGPT) 12 U/L (8-55); AST (SGOT) 24 U/L (5-34); Albumin 3.6 g/dL (3.4-4.8); Alkaline Phosphatase 100 U/L (40-110); Anion Gap 16 mmol/L (10-20); BUN (Urea Nitrogen) 25 mg/dL (8.4-25.7); Bilirubin, Total 0.4 mg/dL (0.2-1.2); Calc. Creatinine Clearance 0 mL/min (70-130); Calcium 9.3 mg/dL (7.8-10.44); Carbon Dioxide 27 mmol/L (23-31); Chloride 103 mmol/L (98-107); Globulin 3.7 g/dL (2.4-3.5); Glucose 98 mg/dL (83-110); Potassium 4.6 mmol/L (3.5-5.1); Protein, Total 7.3 g/dL (5.8-8.1); Sodium 141 mmol/L (136-145)
[2022-03-02 16:16] LABS: PTT 27.9 sec (22.9-36.1); Prothrombin Time 13.4 sec (12.0-14.7)
[2022-03-02 16:18] LABS: CKMB 2.6 ng/mL (0-6.6)
[2022-03-02 16:25] LABS: Bilirubin Negative (Negative); Blood, Urine Negative (Negative); Clarity Clear (Clear); Glucose, Urine (Dipstick) Normal (Negative); Ketone, Urine Negative (Negative); Leukocyte Negative Leu/uL (Negative); Nitrite Negative (Negative); Protein, Urine (Dipstick) Negative (Neg-Trace); Specific Gravity, Urine 1.007 (1.002-1.036); Urobilinogen Normal mg/dL (Less than 2)
[2022-03-03 01:02] VITALS: BMI 35.3
[2022-03-03] MEDS ORDERED: Acetaminophen 325 MG TAB PO PRN (09:17)
[2022-03-03] MEDS: HYDROcodone/Acetaminophen 5/325 mg Tablet PO PRN ×2 (09:34→17:45)
[2022-03-03 11:36] LABS: #Lymphocytes 2.9 thou/uL (1.20-3.40); #Monocytes 1.3 thou/uL (0.11-0.59); #Neutrophils 9.4 thou/uL (1.40-6.50); %Basophils 0.1 % (0.0-1.0); %Eosinophils 0.3 % (0.0-10.0); %Lymphocytes 21.3 % (21.0-51.0); %Monocytes 9.7 % (0.0-10.0); %Neutrophils 68.6 % (42.0-75.0); Hemoglobin 11.3 g/dL (14.0-18.0); Mean Corpuscular HGB CONC 32.7 g/dL (32.0-36.0); Mean Corpuscular Hemoglobin 30.6 pg (27.0-31.0); Mean Corpuscular Volume 93.6 fL (78.0-98.0); Mean Platelet Volume 7.8 fL (7.4-10.4); Platelet Count 326 thou/uL (130-400); RBC Distribution Width 12.9 % (11.5-14.5); White Blood Cell (WBC) Count 13.7 thou/uL (4.8-10.8)
[2022-03-03 11:47] VITALS: BP 158/78; TEMP 98.2
[2022-03-03 11:57] LABS: Anion Gap 15 mmol/L (10-20); BUN (Urea Nitrogen) 23 mg/dL (8.4-25.7); Calc. Creatinine Clearance 60 mL/min (70-130); Calcium 8.8 mg/dL (7.8-10.44); Carbon Dioxide 26 mmol/L (23-31); Chloride 101 mmol/L (98-107); Glucose 110 mg/dL (83-110); Potassium 4.3 mmol/L (3.5-5.1); Sodium 138 mmol/L (136-145)
== END 2022-03-03 18:15 ==
LOC: ERS 12:19 → T4-B 23:13
PROVIDERS: ADMIT Internal Medicine; ATTEND Internal Medicine
DX: M25.461 Effusion, right knee (principal); R19.7 Diarrhea, unspecified; I12.9 Hypertensive chronic kidney disease with stage 1 through stage 4 chronic kidney disease, or unspecified chronic kidney disease; E11.22 Type 2 diabetes mellitus with diabetic chronic kidney disease; N18.30 Chronic kidney disease, stage 3 unspecified; I48.91 Unspecified atrial fibrillation; R53.81 Other malaise; E78.5 Hyperlipidemia, unspecified; I25.10 Atherosclerotic heart disease of native coronary artery without angina pectoris; E66.9 Obesity, unspecified; Z68.35 Body mass index [BMI] 35.0-35.9, adult; Z87.891 Personal history of nicotine dependence; Z79.899 Other long term (current) drug therapy; Z88.5 Allergy status to narcotic agent; Z88.6 Allergy status to analgesic agent; Z91.018 Allergy to other foods; Z96.653 Presence of artificial knee joint, bilateral; Z20.822 Contact with and (suspected) exposure to COVID-19; W06.XXXA Fall from bed, initial encounter; I46.9 Cardiac arrest, cause unspecified; I10 Essential (primary) hypertension
CPT/HCPCS: 71045; 73502; 73564; 80048; 80053; 81003; 82553; 84484; 85025 ×2; 85610; 85730; 93005; 99285; G0378 ×2; U0003; U0005; 36415; 92950; J0171; J3101

== ENCOUNTER 2022-03-03 20:08 | Emergency (ER) | payer MEDICARE, BC ==
[2022-03-03] MEDS ORDERED: Calcium Chloride 1 GM/10 ML Abboject SYRINGE ONE (20:17)
[2022-03-03] MEDS ORDERED: Sodium Bicarb 50 MEQ/50 ML Abboject 8.4% SYRINGE ONE (20:17)
[2022-03-03] MEDS ORDERED: EPINEPHrine 1 MG/10 ML Abboject SYRINGE ONE (20:17)
[2022-03-03] MEDS ORDERED: Tenecteplase 50 MG - STEMI KIT ONE (22:17)
== END 2022-03-03 20:43 | disposition expired ==
LOC: ERS 20:08
DX: I46.9 Cardiac arrest, cause unspecified (principal); I10 Essential (primary) hypertension; Z87.891 Personal history of nicotine dependence
CPT/HCPCS: 92950; J0171; J3101